=== PATIENT | female | born 1960 | race American Indian/Alaskan Native ===

== ENCOUNTER 2023-06-15 19:48 | Emergency (ER) | payer OTHER ==
[~2023-06-15 19:48] MED LIST: Iopamidol-370 76% 500 ML MDV (1 ML CHARGE) ONE
[2023-06-15 20:06] LABS: #Monocytes 0.6 thou/uL (0.11-0.59); #Neutrophils 3.9 thou/uL (1.40-6.50); %Basophils 0.5 % (0.0-1.0); %Eosinophils 0.5 % (0.0-10.0); %Lymphocytes 47.3 % (21.0-51.0); %Monocytes 6.4 % (0.0-10.0); %Neutrophils 45.2 % (42.0-75.0); Hematocrit 40.1 % (36.0-47.0); Hemoglobin 14.1 g/dL (12.0-16.0); Mean Corpuscular HGB CONC 35.2 g/dL (32.0-36.0); Mean Corpuscular Hemoglobin 32.7 pg (27.0-31.0); Mean Platelet Volume 9.2 fL (7.4-10.4); Platelet Count 281 10x3/uL (130-400); RBC Distribution Width 13.4 % (11.5-14.5); Red Blood Cell (RBC) Count 4.31 mill/uL (4.20-5.40); White Blood Cell (WBC) Count 8.7 10x3/uL (4.8-10.8)
[2023-06-15] MEDS ORDERED: Boostrix 0.5 ML (Tdap) VIAL (>/=7 yrs of age) ONE (20:16)
[2023-06-15] MEDS ORDERED: CEFAZOLIN 2 GM VIAL ONE (20:16)
[2023-06-15 20:19] LABS: Prothrombin Time 13.8 sec (12.0-14.7)
[2023-06-15 20:39] LABS: ALT (SGPT) 12 U/L (8-55); AST (SGOT) 24 U/L (5-34); Albumin 3.9 g/dL (3.4-4.8); Alkaline Phosphatase 85 U/L (40-110); Anion Gap 18 mmol/L (10-20); BUN (Urea Nitrogen) 10 mg/dL (9.8-20.1); Bilirubin, Total 0.4 mg/dL (0.2-1.2); Calc. Creatinine Clearance 0 mL/min (70-130); Calcium 8.3 mg/dL (7.8-10.44); Carbon Dioxide 22 mmol/L (23-31); Chloride 104 mmol/L (98-107); Estimated GFR 77; Globulin 3.6 g/dL (2.4-3.5); Potassium 3.3 mmol/L (3.5-5.1); Protein, Total 7.5 g/dL (5.8-8.1); Sodium 141 mmol/L (136-145)
[2023-06-15 21:39] LABS: Glucose 98 mg/dL (80-115)
[2023-06-15 21:41] LABS: Acetaminophen Less than 10 mcg/mL (10.0-30.0); Alcohol 304.9 mg/dL (Less than 10); Salicylate Less than 8.0 mg/dL (15.0-30.0)
== END 2023-06-15 23:54 | disposition home or self-care (01) ==
LOC: ERS 19:48
DX: S00.03XA Contusion of scalp, initial encounter (principal); S80.811A Abrasion, right lower leg, initial encounter; F10.129 Alcohol abuse with intoxication, unspecified; V57.5XXA Driver of pick-up truck or van injured in collision with fixed or stationary object in traffic accident, initial encounter; Y90.8 Blood alcohol level of 240 mg/100 ml or more; Z23 Encounter for immunization
CPT/HCPCS: 36415; 70450; 71045; 71260; 72125; 74177; 80053; 80307; 83605; 85025; 85610; 86850; 86900; 86901; 90471; 90715; 93005; 96361; 96374; G0390; Q9967